=== PATIENT | female | born 1940 | race Caucasian/White ===

== ENCOUNTER → 2016-09-14 | Outpatient (CLI) | payer MEDICARE, OTHER ==
[~2016-09-14] MED LIST: ALL-IN-ONE1 TAB PO; ATOXIMETIN-B1 CAP PO; CALCIUM 500500 M1 PO; COZAAR100 MG PO; COZAAR25 MG PO; HYDROCHLOROTHIA25 MG PO; IBU800 MG PO; LEVOTHYROXIN0.125 MG PO; LOSARTAN POTASS1 TA4 PO; OYSTER SHELL C500 M2 PO; PERCOCET 325 MG1 TA5 PO; PRILOSEC20 MG PO; SYNTHROID,LEV125 MCG PO; SYNTHROID0.125 MG PO; VITAMIN D32000 I1 PO; ZOFRAN8 MG PO
== END | disposition home or self-care (01) ==
LOC: MAMMO 13:09
DX: Z12.31 Encounter for screening mammogram for malignant neoplasm of breast (principal)

== ENCOUNTER → 2017-03-20 | Outpatient (CLI) | payer MEDICARE, OTHER | END | disposition home or self-care (01) | LOC: US 07:17 | DX: K80.20 Calculus of gallbladder without cholecystitis without obstruction (principal) ==

== ENCOUNTER → 2017-09-27 | Outpatient (CLI) | payer MEDICARE, OTHER | END | disposition home or self-care (01) | LOC: MAMMO 09-20 08:20 | DX: Z12.31 Encounter for screening mammogram for malignant neoplasm of breast (principal) ==

== ENCOUNTER → 2018-12-18 | Outpatient (CLI) | payer MEDICARE, OTHER | END | disposition home or self-care (01) | LOC: MAMMO 08:34 | DX: Z12.31 Encounter for screening mammogram for malignant neoplasm of breast (principal) ==

== ENCOUNTER → 2019-01-24 | Outpatient (CLI) | payer MEDICARE, OTHER | END | disposition home or self-care (01) | LOC: RAD 13:21 | DX: M81.0 Age-related osteoporosis without current pathological fracture (principal); M85.89 Other specified disorders of bone density and structure, multiple sites; Z87.891 Personal history of nicotine dependence ==

== ENCOUNTER → 2019-05-15 | Outpatient (CLI) | payer MEDICARE, OTHER ==
[2019-05-15 12:02] LABS: BUN 13 mg/dl (7-24); CHLORIDE 107 mmol/L (98-107); CHOLESTEROL 208 mg/dL (<200); CREATININE 0.88 mg/dL (0.55-1.02); POTASSIUM 3.6 mmol/L (3.5-5.1); SODIUM 143 mmol/L (136-145); TRIGLYCERIDES 165 mg/dl (<150); VLDL CHOLESTEROL 33 mg/dL (6-40)
[2019-05-15 12:12] LABS: HDL CHOLESTEROL 47 mg/dl (40-60); LDL CHOLESTEROL 128 mg/dL (9-159)
== END | disposition home or self-care (01) ==
LOC: LAB 10:30
PROVIDERS: Family Medicine
DX: I10 Essential (primary) hypertension (principal); E78.2 Mixed hyperlipidemia

== ENCOUNTER → 2020-01-19 | Outpatient (CLI) | payer MEDICARE, OTHER | END | disposition home or self-care (01) | LOC: MAMMO 01:01 | PROVIDERS: ATTEND Nurse Practitioner Women's Health | DX: Z12.31 Encounter for screening mammogram for malignant neoplasm of breast (principal) ==

== ENCOUNTER → 2020-11-10 | Outpatient (CLI) | payer MEDICARE, OTHER ==
[2020-11-10 07:56] LABS: BASO # 0.1 10*3/uL (0.0-0.1); BASO % 1.5 % (0.0-1.0); EOS # 0.3 10*3/uL (0.0-0.4); EOS % 3.8 % (1.0-4.0); HEMATOCRIT 44.3 % (37.0-47.0); LYMPH # 1.5 10*3/uL (1.3-4.4); MEAN CELL VOLUME 88.1 fl (81.0-99.0); MEAN CORPUSCULAR HGB CONC 31.8 g/dl (33.0-37.0); MEAN PLATELET VOLUME 9.3 fl (9.6-12.3); MONO # 0.8 10*3/uL (0.1-1.0); MONO % 12.1 % (3.0-9.0); NEUT # 3.8 10*3/uL (2.3-7.9); NEUT % 58.8 % (47.0-73.0); PLATELET COUNT AUTOMATED 521 10*3/uL (130-400); RED BLOOD COUNT 5.03 10*6/uL (4.10-5.10); RED CELL DISTRI WIDTH 13.4 % (0-14.5); WHITE BLOOD COUNT 6.5 10*3/uL (4.8-10.8)
[2020-11-10 08:29] LABS: ALBUMIN 3.6 gm/dl (3.1-4.5); ALKALINE PHOSPHATASE 65 U/L (45-117); BUN 14 mg/dl (7-24); CHLORIDE 104 mmol/L (98-107); CREATININE 0.73 mg/dL (0.55-1.02); LIPASE 242 U/L (73-393); POTASSIUM 3.5 mmol/L (3.5-5.1); SGOT/AST 13 IU/L (3-35); SGPT/ALT 17 U/L (12-78); SODIUM 140 mmol/L (136-145)
== END | disposition home or self-care (01) ==
LOC: LAB 07:07 → US 07:30
PROVIDERS: ATTEND Family Medicine
DX: K80.20 Calculus of gallbladder without cholecystitis without obstruction (principal); K76.89 Other specified diseases of liver; Q77.6 Chondroectodermal dysplasia

== ENCOUNTER → 2023-03-02 | Outpatient (CLI) | payer MEDICARE, OTHER | LOC: LAB 15:38 → CT 16:00 | PROVIDERS: ATTEND Family Medicine | DX: I67.82 Cerebral ischemia (principal); R51.9 Headache, unspecified; R42 Dizziness and giddiness; I10 Essential (primary) hypertension; N32.81 Overactive bladder ==

== ENCOUNTER → 2023-03-08 | Outpatient (CLI) | payer MEDICARE, OTHER | END | disposition home or self-care (01) | LOC: US 13:30 | PROVIDERS: ATTEND Family Medicine | DX: I65.23 Occlusion and stenosis of bilateral carotid arteries (principal); I10 Essential (primary) hypertension; F17.210 Nicotine dependence, cigarettes, uncomplicated; R51.9 Headache, unspecified ==

== ENCOUNTER → 2023-05-15 | Outpatient (CLI) | payer MEDICARE, OTHER | LOC: CARD 01:01 | PROVIDERS: ATTEND Internal Medicine Cardiovascular Disease | DX: I34.0 Nonrheumatic mitral (valve) insufficiency (principal); I49.3 Ventricular premature depolarization; R00.0 Tachycardia, unspecified ==

== ENCOUNTER → 2024-06-20 | Outpatient (CLI) | payer MEDICARE, OTHER | END | disposition home or self-care (01) | LOC: US 09:44 | PROVIDERS: ATTEND Family Medicine | DX: R93.89 Abnormal findings on diagnostic imaging of other specified body structures (principal); N95.0 Postmenopausal bleeding ==

== ENCOUNTER → 2024-07-01 | Outpatient (CLI) | payer MEDICARE, OTHER | END | disposition home or self-care (01) | LOC: US 06-30 11:00 | PROVIDERS: ATTEND Family Medicine | DX: R93.89 Abnormal findings on diagnostic imaging of other specified body structures (principal) ==

== ENCOUNTER → 2024-08-06 | Outpatient (CLI) | payer MEDICARE, OTHER ==
[2024-08-06 11:00] LABS: MEAN CELL VOLUME 110.8 fl (81.0-99.0); MEAN CORPUSCULAR HGB 37.8 pg (27.0-31.0); MEAN CORPUSCULAR HGB CONC 34.1 g/dl (33.0-37.0); MEAN PLATELET VOLUME 8.3 fl (9.6-12.3); PLATELET COUNT AUTOMATED 173 10*3/uL (130-400); RED BLOOD COUNT 3.52 10*6/uL (4.10-5.10); RED CELL DISTRI WIDTH 13.3 % (0-14.5); WHITE BLOOD COUNT 3.8 10*3/uL (4.8-10.8)
[2024-08-06 11:02] LABS: MANUAL DIFF REFLEX YES
[2024-08-06 11:22] LABS: ALKALINE PHOSPHATASE 72 U/L (46-116); BUN 9 mg/dl (9-23); CHLORIDE 105 mmol/L (98-107); LDH 197 U/L (120-246); POTASSIUM 4.4 mmol/L (3.4-5.1); SGPT/ALT 10 U/L (5-49); URIC ACID 4.3 mg/dL (3.1-7.8)
[2024-08-06 11:36] LABS: ATYPICAL LYMPHS 2 % (0-0); TOTAL CELLS COUNTED 100 #CELLS
[2024-08-06 11:37] LABS: PLATELET SUFFICIENCY NORMAL (NORMAL)
== END | disposition home or self-care (01) ==
LOC: LAB 10:40
PROVIDERS: ATTEND Internal Medicine Hematology & Oncology
DX: D47.3 Essential (hemorrhagic) thrombocythemia (principal)

== ENCOUNTER → 2024-08-18 | Outpatient (CLI) | payer MEDICARE, OTHER | END | disposition home or self-care (01) | LOC: LAB 08:38 | PROVIDERS: ATTEND Family Medicine | DX: D64.9 Anemia, unspecified (principal); E83.52 Hypercalcemia ==

== ENCOUNTER → 2025-02-05 | Outpatient (CLI) | payer MEDICARE, OTHER ==
[2025-02-05 10:24] LABS: MEAN CELL VOLUME 116.8 fl (81.0-99.0); MEAN CORPUSCULAR HGB 39.1 pg (27.0-31.0); MEAN PLATELET VOLUME 8.6 fl (9.6-12.3); NUCLEATED RED BLOOD CELL 0.0 % (0.0-0.0); NUCLEATED RED BLOOD CELL 0.0 10*3/uL (0.0-0.0); PLATELET COUNT AUTOMATED 147.0 10*3/uL (130-400); RED CELL DISTRI WIDTH 12.4 % (0-14.5)
[2025-02-05 11:10] LABS: BUN 11 mg/dl (9-23); FREE T4 1.22 ng/dl (0.89-1.76); SGPT/ALT 10 U/L (5-49)
[2025-02-05 11:22] LABS: VITAMIN D, 25-HYDROXY 59.3 ng/mL (30-100)
== END | disposition home or self-care (01) ==
LOC: LAB 09:50
PROVIDERS: ATTEND Family Medicine
DX: I10 Essential (primary) hypertension (principal); E55.9 Vitamin D deficiency, unspecified; E03.9 Hypothyroidism, unspecified; K21.9 Gastro-esophageal reflux disease without esophagitis